=== PATIENT | female | born 1985 | race African-American/Black ===

== ENCOUNTER 2018-04-07 17:54 | Emergency (ER) | payer MEDICARE, MEDICAID ==
[~2018-04-07 17:54] MED LIST: ISOVUE-370 76%-LOCM 1 ML ONE; Iopamidol 370 76% 50 ML VIAL FS ONE
[2018-04-07 18:43] LABS: #Basophils 0.1 thou/uL (0.0-0.2); #Eosinphils 0.2 thou/uL (0.0-0.7); #Lymphocytes 3.2 thou/uL (1.20-3.40); #Monocytes 0.5 thou/uL (0.11-0.59); #Neutrophils 4.9 thou/uL (1.40-6.50); %Eosinophils 1.9 % (0.0-10.0); %Lymphocytes 36.3 % (21.0-51.0); %Neutrophils 54.9 % (42.0-75.0); Hemoglobin 13.8 g/dL (12.0-16.0); Mean Corpuscular HGB CONC 33.8 g/dL (32.0-36.0); Mean Corpuscular Hemoglobin 30.9 pg (27.0-31.0); Mean Corpuscular Volume 91.5 fL (78.0-98.0); Mean Platelet Volume 7.4 fL (7.4-10.4); Platelet Count 307 thou/uL (130-400); RBC Distribution Width 12.1 % (11.5-14.5); Red Blood Cell (RBC) Count 4.45 mill/uL (4.20-5.40); White Blood Cell (WBC) Count 8.8 thou/uL (4.8-10.8)
[2018-04-07 18:45] LABS: ALT (SGPT) 13 U/L (8-55); AST (SGOT) 14 U/L (5-34); Albumin 4.7 g/dL (3.5-5.0); Alkaline Phosphatase 74 U/L (40-150); Anion Gap 22 mmol/L (10-20); BUN (Urea Nitrogen) 7 mg/dL (7.0-18.7); Bilirubin, Total 0.2 mg/dL (0.2-1.2); Calc. Creatinine Clearance 0 mL/min (70-130); Carbon Dioxide 14 mmol/L (22-29); Chloride 107 mmol/L (98-107); Estimated GFR-MDRD Greater than 90; Globulin 3.3 g/dL (2.4-3.5); Glucose 103 mg/dL (70-105); Lipase 46 U/L (8-78); Potassium 3.7 mmol/L (3.5-5.1); Sodium 139 mmol/L (136-145)
[2018-04-07 19:09] LABS: Bilirubin Small (Negative); Blood, Urine Negative (Negative); Clarity CLEAR (Clear); Glucose, Urine (Dipstick) Negative (Negative); Leukocyte Trace (Negative); Nitrite Negative (Negative); Protein, Urine (Dipstick) Trace mg/dL (Neg-Trace); Specific Gravity, Urine 1.036 (1.002-1.036); Urobilinogen 0.2 mg/dL (0.2-1.0); pH, Urine 5.5 (5.0-9.0)
[2018-04-07 19:11] LABS: Bacteria/HPF None Seen HPF (None Seen); Hyaline Casts/LPF 4-6 HYALINE CAST LPF (0-3 Hyaline); Pathc Cast-AUWi Flag 0.87 (0-2.49); WBC/HPF 21-50 HPF (0-3)
[2018-04-07 19:13] LABS: Pregnancy Test - Urine (BHCG) Negative (Negative); Pregu Control Background? CLEAR/WHITE (CLR/WHITE); Pregu Control Bar Appear? YES (CONTROL BAR); RBC/HPF None Seen HPF (0-3); Specific Gravity 1.036 (1.002-1.036)
[2018-04-07] MEDS ORDERED: Ondansetron HCl/PF 4 MG/2 ML Vial ONE (19:44)
[2018-04-07] MEDS ORDERED: Ketorolac Tromethamine 30 MG/ML VIAL ONE (20:23)
--- NOTE | 2018-04-07 21:54 | CT ---
CT ABDOMEN WITH CONTRAST CT PELVIS WITH CONTRAST: DATE: 04/07/18 TIME: 9:19 p.m. HISTORY: 32-year-old female with suprapubic abdominal pain for two weeks, nausea, emesis, and diarrhea. Hematu thomas. COMPARISON: 04/12/17. TECHNIQUE: IV injection of iodinated contrast media: Administered. Oral contrast media: Administered. FINDINGS: Most of the oral contrast material remains in the moderately distended stomach. Some has reached the proximal third stage of the duodenum. None has reached the jejunum. There is no small bowel dilation. The transverse, ascending, and descending colon, are absent. There is a suture line at a nondistende d bowel loop at the right lower quadrant/pelvic inlet as previously demonstrated. There is architectu ral distortion of the mesentery near midline at the pelvic inlet/lower peritoneal cavity, probably re presenting postsurgical scar. Previously, there was a 3.5 cm left adnexal cyst, which is no longer pr esent. Previously, there was a mostly fluid filled moderately distended rectum, with a suture line ar ound it. Currently, what appears to be the rectosigmoid colon is more distended, now mostly with gas. There is a small amount of liquid stool in the posterior, dependent portion of the lumen of the rect um. Suture line around the rectum is again demonstrated. There is mild mural thickening of the rectum , similar to the previous CT. There is again, minimal edema or fluid abutting the posterior surface o f the rectum, similar to previous CT. Otherwise, no free fluid. The urinary bladder is decompressed. Abdominal aorta, bilateral kidneys, adrenals, pancreas, and spleen, are normal. The liver is enlarged . No portal vein thrombosis. No focal hepatic mass lesion or biliary ductal dilatation. No pneumoperi toneum. Lung bases are clear. IMPRESSION: 1. Status post subtotal colectomy. 2. Gas filled distended rectosigmoid colon with mild mural thickening of the rectum, and old sut ure line around the rectum, similar to previous CT. Nonspecific. Questionable proctitis. 3. Hepatomegaly. 4. No abscess. JANI Leyav POS: BOBBI
== END 2018-04-07 23:20 | disposition home or self-care (01) ==
LOC: ERS 17:54
DX: K52.9 Noninfective gastroenteritis and colitis, unspecified (principal); J45.909 Unspecified asthma, uncomplicated; F41.9 Anxiety disorder, unspecified; F17.210 Nicotine dependence, cigarettes, uncomplicated; Z79.899 Other long term (current) drug therapy
CPT/HCPCS: 36415; 74177; 80053; 81003; 81015; 81025; 83690; 85025; 94760; 96361; 96372; 96374; 96375; J1885; J2405

== ENCOUNTER 2018-06-21 03:09 | Emergency (ER) | payer MEDICARE, MEDICAID ==
[2018-06-21 04:12] LABS: Bilirubin Negative (Negative); Blood, Urine Trace (Negative); Clarity CLEAR (Clear); Glucose, Urine (Dipstick) Negative (Negative); Leukocyte Negative (Negative); Nitrite Negative (Negative); Protein, Urine (Dipstick) Negative (Neg-Trace); Specific Gravity, Urine 1.011 (1.002-1.036); Urobilinogen 0.2 mg/dL (0.2-1.0); pH, Urine 5.5 (5.0-9.0)
[2018-06-21 04:14] LABS: Bacteria/HPF None Seen HPF (None Seen); Hyaline Casts/LPF 0-3 HYALINE CAST LPF (0-3 Hyaline); RBC/HPF 0-3 HPF (0-3); Squamous Epithelial None Seen HPF (0-3); WBC/HPF 0-3 HPF (0-3)
[2018-06-21 04:18] LABS: #Basophils 0.1 thou/uL (0.0-0.2); #Eosinphils 0.1 thou/uL (0.0-0.7); #Lymphocytes 3.2 thou/uL (1.20-3.40); #Monocytes 0.6 thou/uL (0.11-0.59); #Neutrophils 4.9 thou/uL (1.40-6.50); %Basophils 0.6 % (0.0-1.0); %Eosinophils 1.1 % (0.0-10.0); %Lymphocytes 35.9 % (21.0-51.0); %Monocytes 6.5 % (0.0-10.0); %Neutrophils 55.9 % (42.0-75.0); Hemoglobin 11.7 g/dL (12.0-16.0); Mean Corpuscular HGB CONC 32.9 g/dL (32.0-36.0); Mean Corpuscular Hemoglobin 30.3 pg (27.0-31.0); Mean Corpuscular Volume 92.1 fL (78.0-98.0); Mean Platelet Volume 7.6 fL (7.4-10.4); Platelet Count 268 thou/uL (130-400); RBC Distribution Width 12.5 % (11.5-14.5); Red Blood Cell (RBC) Count 3.86 mill/uL (4.20-5.40); White Blood Cell (WBC) Count 8.8 thou/uL (4.8-10.8)
[2018-06-21 04:26] LABS: PTT 27.1 SEC (22.9-36.1); Prothrombin Time 13.2 SEC (12.0-14.7)
[2018-06-21 04:33] LABS: BHCG - Serum Negative (NEGATIVE); Pregs Control Background? CLEAR/WHITE (CLR/WHITE); Pregs Control Bar Appear? YES (CONTROL BAR)
[2018-06-21 04:34] LABS: ALT (SGPT) 24 U/L (8-55); AST (SGOT) 21 U/L (5-34); Albumin 4.2 g/dL (3.5-5.0); Alkaline Phosphatase 50 U/L (40-150); Anion Gap 13 mmol/L (10-20); BUN (Urea Nitrogen) 8 mg/dL (7.0-18.7); Bilirubin, Total 0.3 mg/dL (0.2-1.2); Calc. Creatinine Clearance 0 mL/min (70-130); Calcium 9.4 mg/dL (7.8-10.44); Carbon Dioxide 20 mmol/L (22-29); Chloride 108 mmol/L (98-107); Estimated GFR-MDRD Greater than 90; Globulin 2.7 g/dL (2.4-3.5); Glucose 92 mg/dL (70-105); Protein, Total 6.9 g/dL (6.0-8.3); Sodium 137 mmol/L (136-145)
[2018-06-21 04:39] LABS: CKMB 0.7 ng/mL (0-6.6); Troponin I Less than 0.010 ng/mL (< 0.028)
== END 2018-06-21 05:08 | disposition home or self-care (01) ==
LOC: ERS 03:09
DX: R42 Dizziness and giddiness (principal); J45.909 Unspecified asthma, uncomplicated; F41.9 Anxiety disorder, unspecified; F17.210 Nicotine dependence, cigarettes, uncomplicated; Z79.899 Other long term (current) drug therapy
CPT/HCPCS: 36415; 80053; 81003; 81015; 82274; 82553; 84484; 84703; 85025; 85610; 85730; 87086; 93005

== ENCOUNTER 2020-11-24 09:11 | Emergency (ER) | payer MEDICARE, MEDICAID ==
[~2020-11-24 09:11] MED LIST changes: -ISOVUE-370 76%-LOCM 1 ML ONE; -Iopamidol 370 76% 50 ML VIAL FS ONE; +Iopamidol-370 76% 500 ML 1 ML ONE
[2020-11-24] MEDS ORDERED: Ondansetron PF 4 MG/2 ML Vial ONE ×3 (09:28→11:49)
[2020-11-24] MEDS ORDERED: Morphine 4 MG/ML VIAL ONE ×2 (09:28→10:25)
[2020-11-24 10:05] LABS: #Basophils 0.1 thou/uL (0.0-0.2); #Lymphocytes 3.1 thou/uL (1.20-3.40); #Monocytes 0.7 thou/uL (0.11-0.59); #Neutrophils 6.7 thou/uL (1.40-6.50); %Basophils 0.6 % (0.0-1.0); %Eosinophils 0.3 % (0.0-10.0); %Lymphocytes 29.5 % (21.0-51.0); %Monocytes 6.7 % (0.0-10.0); Hemoglobin 13.3 g/dL (12.0-16.0); Mean Corpuscular HGB CONC 33.4 g/dL (32.0-36.0); Mean Corpuscular Volume 92.8 fL (78.0-98.0); Mean Platelet Volume 7.5 fL (7.4-10.4); Platelet Count 329 thou/uL (130-400); RBC Distribution Width 12.7 % (11.5-14.5); White Blood Cell (WBC) Count 10.6 thou/uL (4.8-10.8)
[2020-11-24 10:23] LABS: ALT (SGPT) 27 U/L (8-55); AST (SGOT) 13 U/L (5-34); Albumin 4.3 g/dL (3.5-5.0); Alkaline Phosphatase 80 U/L (40-110); Anion Gap 17 mmol/L (10-20); BUN (Urea Nitrogen) 6 mg/dL (7.0-18.7); Bilirubin, Total 0.3 mg/dL (0.2-1.2); Calc. Creatinine Clearance 0 mL/min (70-130); Calcium 9.1 mg/dL (7.8-10.44); Carbon Dioxide 17 mmol/L (22-29); Chloride 107 mmol/L (98-107); Globulin 3.3 g/dL (2.4-3.5); Glucose 101 mg/dL (70-105); Lipase 24 U/L (8-78); Potassium 3.9 mmol/L (3.5-5.1); Protein, Total 7.6 g/dL (6.0-8.3); Sodium 137 mmol/L (136-145)
[2020-11-24 10:30] LABS: BHCG - Serum Negative (NEGATIVE); Pregs Control Background? CLEAR/WHITE (CLR/WHITE); Pregs Control Bar Appear? YES (CONTROL BAR)
[2020-11-24 11:23] LABS: Bacteria/HPF None Seen HPF (None Seen); Bilirubin Negative (Negative); Blood, Urine 1+ (Negative); Clarity Clear (Clear); Glucose, Urine (Dipstick) Normal (Negative); Ketone, Urine 20 mg/dL (Negative); Leukocyte Negative Leu/uL (Negative); Nitrite Negative (Negative); Protein, Urine (Dipstick) 10 mg/dL (Neg-Trace); RBC/HPF 0-3 HPF (0-3); Specific Gravity, Urine 1.015 (1.002-1.036); Urobilinogen Normal mg/dL (Less than 2)
== END 2020-11-24 12:24 | disposition home or self-care (01) ==
LOC: ERS 09:11
DX: R10.84 Generalized abdominal pain (principal); J45.909 Unspecified asthma, uncomplicated; F17.210 Nicotine dependence, cigarettes, uncomplicated
CPT/HCPCS: 36415; 74177; 80053; 81003; 81015; 83690; 84703; 85025; 93005; 96374; 96375; 96376; 99284; J2270; J2405; Q9967

== ENCOUNTER 2020-12-01 14:56 | Emergency (ER) | payer MEDICARE, MEDICAID ==
[2020-12-01] MEDS ORDERED: Lidocaine 1% w/Epinephrine 1:100K 20 ML VIAL ONE (16:02)
== END 2020-12-01 17:13 | disposition home or self-care (01) ==
LOC: ERS 14:56
DX: L02.214 Cutaneous abscess of groin (principal); J45.909 Unspecified asthma, uncomplicated; F17.210 Nicotine dependence, cigarettes, uncomplicated; Z79.899 Other long term (current) drug therapy
CPT/HCPCS: 10060

== ENCOUNTER 2021-09-23 14:09 | Emergency (ER) | payer MEDICAID, MEDICARE ==
[2021-09-23] MEDS ORDERED: Ondansetron PF 4 MG/2 ML Vial ONE (14:51)
[2021-09-23] MEDS ORDERED: Ketorolac Tromethamine 30 MG/ML VIAL ONE (14:51)
[2021-09-23] MEDS ORDERED: Acetaminophen 500 MG TAB ONE (14:51)
[2021-09-23 15:49] LABS: Bacteria/HPF 1+ HPF (None Seen); Bilirubin Negative (Negative); Blood, Urine 1+ (Negative); Clarity Turbid (Clear); Glucose, Urine (Dipstick) Normal (Negative); Ketone, Urine 20 mg/dL (Negative); Leukocyte Negative Leu/uL (Negative); Nitrite Negative (Negative); Pregnancy Test - Urine (BHCG) Negative (Negative); Pregu Control Background? CLEAR/WHITE (CLR/WHITE); Pregu Control Bar Appear? YES (CONTROL BAR); Protein, Urine (Dipstick) 10 mg/dL (Neg-Trace); RBC/HPF 0-3 HPF (0-3); Specific Gravity 1.017 (1.002-1.036); Specific Gravity, Urine 1.017 (1.002-1.036); Urobilinogen Normal mg/dL (Less than 2); WBC/HPF 0-3 HPF (0-3); pH, Urine 5.5 (5.0-9.0)
[2021-09-23 16:39] LABS: #Lymphocytes 2.5 thou/uL (1.20-3.40); #Monocytes 0.6 thou/uL (0.11-0.59); #Neutrophils 8.2 thou/uL (1.40-6.50); %Eosinophils 0.1 % (0.0-10.0); %Lymphocytes 21.6 % (21.0-51.0); %Monocytes 5.5 % (0.0-10.0); %Neutrophils 72.7 % (42.0-75.0); Hemoglobin 13.8 g/dL (12.0-16.0); Mean Corpuscular HGB CONC 33.2 g/dL (32.0-36.0); Mean Corpuscular Hemoglobin 30.8 pg (27.0-31.0); Mean Corpuscular Volume 92.6 fL (78.0-98.0); Mean Platelet Volume 7.5 fL (7.4-10.4); Platelet Count 338 thou/uL (130-400); Red Blood Cell (RBC) Count 4.49 mill/uL (4.20-5.40); White Blood Cell (WBC) Count 11.3 thou/uL (4.8-10.8)
[2021-09-23 17:03] LABS: ALT (SGPT) 36 U/L (8-55); AST (SGOT) 17 U/L (5-34); Albumin 4.5 g/dL (3.5-5.0); Alkaline Phosphatase 90 U/L (40-110); Anion Gap 20 mmol/L (10-20); BUN (Urea Nitrogen) 8 mg/dL (7.0-18.7); Bilirubin, Total 0.3 mg/dL (0.2-1.2); Calc. Creatinine Clearance 0 mL/min (70-130); Calcium 9.9 mg/dL (7.8-10.44); Carbon Dioxide 21 mmol/L (22-29); Chloride 99 mmol/L (98-107); Globulin 3.6 g/dL (2.4-3.5); Glucose 101 mg/dL (70-105); Lipase 20 U/L (8-78); Potassium 3.7 mmol/L (3.5-5.1); Protein, Total 8.1 g/dL (6.0-8.3); Sodium 136 mmol/L (136-145)
== END 2021-09-23 17:57 | disposition home or self-care (01) ==
LOC: ERS 14:09
DX: R10.84 Generalized abdominal pain (principal); J45.909 Unspecified asthma, uncomplicated; F17.210 Nicotine dependence, cigarettes, uncomplicated
CPT/HCPCS: 80053; 81003; 81015; 81025; 83690; 85025; 93005; 96374; 96375; J1885; J2405

== ENCOUNTER 2021-10-24 16:56 | Emergency (ER) | payer OTHER ==
[2021-10-24] MEDS ORDERED: Ketorolac Tromethamine 30 MG/ML VIAL ONE (17:53)
== END 2021-10-24 18:18 | disposition home or self-care (01) ==
LOC: ERS 16:56
DX: M25.572 Pain in left ankle and joints of left foot (principal); F17.210 Nicotine dependence, cigarettes, uncomplicated
CPT/HCPCS: 96372; J1885

== ENCOUNTER 2022-02-20 17:33 | Emergency (ER) | payer MEDICARE, OTHER ==
[2022-02-20] MEDS ORDERED: Ketorolac Tromethamine 30 MG/ML VIAL ONE (18:22)
== END 2022-02-20 19:05 | disposition home or self-care (01) ==
LOC: ERS 17:33
DX: H66.92 Otitis media, unspecified, left ear (principal); K02.9 Dental caries, unspecified; Z20.822 Contact with and (suspected) exposure to COVID-19; J45.909 Unspecified asthma, uncomplicated; Z85.038 Personal history of other malignant neoplasm of large intestine; F17.210 Nicotine dependence, cigarettes, uncomplicated
CPT/HCPCS: 87804; 96372; 99283; J1885; U0003; U0005

== ENCOUNTER 2022-03-25 09:42 | Emergency (ER) | payer OTHER ==
[2022-03-25 10:46] LABS: Bacteria/HPF None Seen HPF (None Seen); Bilirubin Negative (Negative); Blood, Urine Trace (Negative); Clarity Turbid (Clear); Glucose, Urine (Dipstick) Normal (Negative); Ketone, Urine Negative (Negative); Leukocyte 75 Leu/uL (Negative); Nitrite Negative (Negative); Protein, Urine (Dipstick) Negative (Neg-Trace); Specific Gravity, Urine 1.019 (1.002-1.036); Squamous Epithelial 0-3 HPF (0-3); Urobilinogen Normal mg/dL (Less than 2); pH, Urine 5.5 (5.0-9.0)
[2022-03-25] MEDS ORDERED: Lidocaine Viscous Sol 2% 15 ml UD Cup ONE (11:28)
== END 2022-03-25 12:11 | disposition home or self-care (01) ==
LOC: ERS 09:42
DX: B37.3 Candidiasis of vulva and vagina (principal); J45.909 Unspecified asthma, uncomplicated; F17.210 Nicotine dependence, cigarettes, uncomplicated
CPT/HCPCS: 81003; 81015; 87086; 99283

== ENCOUNTER 2022-05-18 11:39 | Emergency (ER) | payer OTHER ==
[2022-05-18] MEDS ORDERED: Morphine 4 MG/ML VIAL ONE (12:36)
[2022-05-18 12:50] LABS: #Eosinphils 0.2 thou/uL (0.0-0.7); #Lymphocytes 3.1 thou/uL (1.20-3.40); #Monocytes 0.6 thou/uL (0.11-0.59); #Neutrophils 4.7 thou/uL (1.40-6.50); %Basophils 0.6 % (0.0-1.0); %Eosinophils 1.9 % (0.0-10.0); %Lymphocytes 36.2 % (21.0-51.0); %Monocytes 6.4 % (0.0-10.0); Hemoglobin 13.9 g/dL (12.0-16.0); Mean Corpuscular Hemoglobin 31.2 pg (27.0-31.0); Mean Corpuscular Volume 94.8 fL (78.0-98.0); Mean Platelet Volume 7.5 fL (7.4-10.4); Platelet Count 345 thou/uL (130-400); RBC Distribution Width 12.5 % (11.5-14.5); Red Blood Cell (RBC) Count 4.46 mill/uL (4.20-5.40); White Blood Cell (WBC) Count 8.6 thou/uL (4.8-10.8)
[2022-05-18 12:52] LABS: BHCG - Serum Negative (NEGATIVE); Pregs Control Background? CLEAR/WHITE (CLR/WHITE); Pregs Control Bar Appear? YES (CONTROL BAR)
[2022-05-18 13:16] LABS: ALT (SGPT) 15 U/L (8-55); AST (SGOT) 15 U/L (5-34); Albumin 4.4 g/dL (3.5-5.0); Alkaline Phosphatase 85 U/L (40-110); Anion Gap 14 mmol/L (10-20); BUN (Urea Nitrogen) 4 mg/dL (7.0-18.7); Bilirubin, Total 0.3 mg/dL (0.2-1.2); Calc. Creatinine Clearance 0 mL/min (70-130); Calcium 9.7 mg/dL (7.8-10.44); Carbon Dioxide 21 mmol/L (22-29); Chloride 104 mmol/L (98-107); Estimated GFR 107; Globulin 3.2 g/dL (2.4-3.5); Glucose 100 mg/dL (70-105); Lipase 29 U/L (8-78); Potassium 4.1 mmol/L (3.5-5.1); Protein, Total 7.6 g/dL (6.0-8.3); Sodium 135 mmol/L (136-145)
[2022-05-18 14:34] LABS: Bilirubin Negative (Negative); Blood, Urine Negative (Negative); Clarity Clear (Clear); Glucose, Urine (Dipstick) Normal (Negative); Ketone, Urine Negative (Negative); Leukocyte Negative Leu/uL (Negative); Nitrite Negative (Negative); Protein, Urine (Dipstick) Negative (Neg-Trace); Specific Gravity, Urine 1.042 (1.002-1.036); Urobilinogen Normal mg/dL (Less than 2); pH, Urine 7.5 (5.0-9.0)
== END 2022-05-18 14:50 | disposition home or self-care (01) ==
LOC: ERS 11:39
DX: R10.31 Right lower quadrant pain (principal); I44.1 Atrioventricular block, second degree; K63.5 Polyp of colon; F17.210 Nicotine dependence, cigarettes, uncomplicated; K31.7 Polyp of stomach and duodenum
CPT/HCPCS: 36415; 74177; 80053; 81003; 83690; 84703; 85025; 93005; 96374; J2270; Q9967

== ENCOUNTER 2022-07-23 11:41 | Emergency (ER) | payer OTHER ==
[2022-07-23] MEDS ORDERED: Acetaminophen 500 MG TAB ONE (12:22)
[2022-07-23] MEDS ORDERED: Magnesium 2 GM/50 ML BAG (IN WATER) ONE (12:22)
[2022-07-23] MEDS ORDERED: Ketorolac Tromethamine 30 MG/ML VIAL ONE (12:22)
[2022-07-23] MEDS ORDERED: diphenhydrAMINE 50 MG/ML VIAL ONE (12:22)
[2022-07-23] MEDS ORDERED: Prochlorperazine 10 MG/2 ML VIAL ONE (12:24)
[2022-07-23 13:48] LABS: #Eosinphils 0.1 thou/uL (0.0-0.7); #Lymphocytes 0.8 thou/uL (1.20-3.40); #Monocytes 0.5 thou/uL (0.11-0.59); #Neutrophils 7.9 thou/uL (1.40-6.50); %Basophils 0.4 % (0.0-1.0); %Eosinophils 0.8 % (0.0-10.0); %Lymphocytes 8.9 % (21.0-51.0); %Neutrophils 84.9 % (42.0-75.0); Hemoglobin 13.2 g/dL (12.0-16.0); Mean Corpuscular HGB CONC 32.6 g/dL (32.0-36.0); Mean Corpuscular Hemoglobin 30.8 pg (27.0-31.0); Mean Corpuscular Volume 94.4 fl (78.0-98.0); Platelet Count 276 10x3/uL (130-400); Red Blood Cell (RBC) Count 4.27 mill/uL (4.20-5.40); White Blood Cell (WBC) Count 9.3 10x3/uL (4.8-10.8)
[2022-07-23 14:13] LABS: BHCG - Serum Negative (NEGATIVE); Pregs Control Background? CLEAR/WHITE (CLR/WHITE); Pregs Control Bar Appear? YES (CONTROL BAR)
[2022-07-23 14:23] LABS: Anion Gap 16 mmol/L (10-20); BUN (Urea Nitrogen) 6 mg/dL (7.0-18.7); Calc. Creatinine Clearance 0 mL/min (70-130); Carbon Dioxide 20 mmol/L (22-29); Chloride 105 mmol/L (98-107); Potassium 3.5 mmol/L (3.5-5.1); Sodium 137 mmol/L (136-145)
[2022-07-23 14:24] LABS: ALT (SGPT) 16 U/L (8-55); AST (SGOT) 14 U/L (5-34); Albumin 4.2 g/dL (3.5-5.0); Alkaline Phosphatase 70 U/L (40-110); Bilirubin, Total 0.3 mg/dL (0.2-1.2); Calcium 9.3 mg/dL (7.8-10.44); Estimated GFR 104; Globulin 3.5 g/dL (2.4-3.5); Glucose 92 mg/dL (70-105); Lipase 25 U/L (8-78); Protein, Total 7.7 g/dL (6.0-8.3)
== END 2022-07-23 14:48 | disposition home or self-care (01) ==
LOC: ERS 11:41
DX: R51.9 Headache, unspecified (principal); J45.909 Unspecified asthma, uncomplicated; F17.210 Nicotine dependence, cigarettes, uncomplicated
CPT/HCPCS: 80053; 83690; 84703; 85025; 96365; 96375; J0780; J1200; J1885; J3475

== ENCOUNTER 2022-07-23 16:39 | Observation (INO) | payer OTHER ==
[2022-07-23] MEDS ORDERED: Haloperidol Lactate 5 MG/ML VIAL ONE (16:59)
[2022-07-23] MEDS ORDERED: methylPREDNISolone Sod Succ/PF 125 MG/2 ML VIAL ONE (16:59)
[2022-07-23 18:29] LABS: SARS-CoV-2 NAA Rapid Test Not Detected (NotDetected)
[2022-07-23 18:36] LABS: #Lymphocytes 0.9 thou/uL (1.20-3.40); #Monocytes 0.4 thou/uL (0.11-0.59); #Neutrophils 5.4 thou/uL (1.40-6.50); %Basophils 0.1 % (0.0-1.0); %Eosinophils 0.7 % (0.0-10.0); %Monocytes 5.5 % (0.0-10.0); %Neutrophils 79.8 % (42.0-75.0); Hemoglobin 11.6 g/dL (12.0-16.0); Mean Corpuscular HGB CONC 33.2 g/dL (32.0-36.0); Mean Corpuscular Hemoglobin 31.6 pg (27.0-31.0); Mean Corpuscular Volume 95.4 fl (78.0-98.0); Mean Platelet Volume 7.4 fL (7.4-10.4); Platelet Count 254 10x3/uL (130-400); RBC Distribution Width 12.2 % (11.5-14.5); Red Blood Cell (RBC) Count 3.68 mill/uL (4.20-5.40); White Blood Cell (WBC) Count 6.7 10x3/uL (4.8-10.8)
[2022-07-23 19:03] LABS: ALT (SGPT) 13 U/L (8-55); AST (SGOT) 15 U/L (5-34); Albumin 3.6 g/dL (3.5-5.0); Alkaline Phosphatase 59 U/L (40-110); Anion Gap 13 mmol/L (10-20); BUN (Urea Nitrogen) 6 mg/dL (7.0-18.7); Bilirubin, Total 0.2 mg/dL (0.2-1.2); Calc. Creatinine Clearance 0 mL/min (70-130); Calcium 7.9 mg/dL (7.8-10.44); Carbon Dioxide 19 mmol/L (22-29); Chloride 111 mmol/L (98-107); Estimated GFR 117; Globulin 2.5 g/dL (2.4-3.5); Glucose 87 mg/dL (70-105); Magnesium 2.3 mg/dL (1.6-2.6); Potassium 3.9 mmol/L (3.5-5.1); Protein, Total 6.1 g/dL (6.0-8.3); Sodium 139 mmol/L (136-145)
[2022-07-23] MEDS ORDERED: Potassium Chloride 20 MEQ TAB ONE (19:16)
[2022-07-23 20:26] LABS: #Lymphocytes 0.7 thou/uL (1.20-3.40); #Monocytes 0.2 thou/uL (0.11-0.59); #Neutrophils 6.4 thou/uL (1.40-6.50); %Eosinophils 0.3 % (0.0-10.0); %Lymphocytes 9.7 % (21.0-51.0); %Monocytes 2.2 % (0.0-10.0); %Neutrophils 87.8 % (42.0-75.0); Hemoglobin 12.4 g/dL (12.0-16.0); Mean Corpuscular HGB CONC 33.1 g/dL (32.0-36.0); Mean Corpuscular Hemoglobin 31.4 pg (27.0-31.0); Mean Corpuscular Volume 94.9 fl (78.0-98.0); Mean Platelet Volume 7.5 fL (7.4-10.4); Platelet Count 267 10x3/uL (130-400); RBC Distribution Width 12.1 % (11.5-14.5); Red Blood Cell (RBC) Count 3.96 mill/uL (4.20-5.40); White Blood Cell (WBC) Count 7.3 10x3/uL (4.8-10.8)
[2022-07-23] MEDS ORDERED: Albuterol Sulfate 2.5 mg/3 ml Neb NEB PRN (21:19)
[2022-07-23] MEDS ORDERED: Oseltamivir 75 MG CAP PO SCH (21:30)
[2022-07-24] MEDS ORDERED: Acetaminophen 325 MG TAB ONE ×3 (01:23→12:40)
[2022-07-24] MEDS: Acetaminophen 325 MG TAB PO PRN ×4 (01:24→20:24)
[2022-07-24] MEDS ORDERED: Ondansetron PF 4 MG/2 ML Vial ONE ×2 (06:37→12:40)
[2022-07-24] MEDS: Ondansetron PF 4 MG/2 ML Vial IVP PRN ×3 (06:38→17:28)
[2022-07-24] MEDS: Oseltamivir 75 MG CAP PO SCH ×2 (09:09→20:17)
[2022-07-24 09:44] LABS: #Lymphocytes 1.1 thou/uL (1.20-3.40); #Monocytes 0.3 thou/uL (0.11-0.59); #Neutrophils 5.6 thou/uL (1.40-6.50); %Eosinophils 0.3 % (0.0-10.0); %Lymphocytes 15.6 % (21.0-51.0); %Monocytes 4.4 % (0.0-10.0); %Neutrophils 79.8 % (42.0-75.0); Mean Corpuscular HGB CONC 32.8 g/dL (32.0-36.0); Mean Corpuscular Hemoglobin 31.5 pg (27.0-31.0); Mean Platelet Volume 8.2 fL (7.4-10.4); Platelet Count 263 10x3/uL (130-400); RBC Distribution Width 12.1 % (11.5-14.5); Red Blood Cell (RBC) Count 4.12 mill/uL (4.20-5.40)
[2022-07-24 11:18] LABS: Chloride 108 mmol/L (98-107); Potassium 3.9 mmol/L (3.5-5.1); Sodium 138 mmol/L (136-145)
[2022-07-24 11:19] LABS: Calcium 8.9 mg/dL (7.8-10.44); Glucose 113 mg/dL (70-105)
[2022-07-24 11:21] LABS: Anion Gap 12 mmol/L (10-20); Carbon Dioxide 22 mmol/L (22-29)
[2022-07-24 11:23] LABS: Calc. Creatinine Clearance 0 mL/min (70-130); Estimated GFR 114
[2022-07-24 11:24] LABS: BUN (Urea Nitrogen) 8 mg/dL (7.0-18.7)
[2022-07-24] MEDS: traMADol HCl 50 MG TAB PO PRN (16:32)
[2022-07-24 17:08] VITALS: BMI 32.7
[2022-07-25] MEDS: traMADol HCl 50 MG TAB PO PRN ×2 (01:49→08:44)
[2022-07-25] MEDS: Ondansetron PF 4 MG/2 ML Vial IVP PRN ×2 (01:49→08:45)
[2022-07-25] MEDS: Acetaminophen 325 MG TAB PO PRN ×2 (05:35→11:10)
[2022-07-25] MEDS: Oseltamivir 75 MG CAP PO SCH (08:44)
[2022-07-25 11:41] VITALS: BP 111/55; TEMP 97.5
== END 2022-07-25 15:00 | disposition home or self-care (01) ==
LOC: ERS 16:39 → ERHOLD 20:21 → 2SW 20:31
PROVIDERS: ADMIT Internal Medicine; ATTEND Internal Medicine
DX: J10.1 Influenza due to other identified influenza virus with other respiratory manifestations (principal); R55 Syncope and collapse; J45.909 Unspecified asthma, uncomplicated; I44.1 Atrioventricular block, second degree; F17.210 Nicotine dependence, cigarettes, uncomplicated; F12.10 Cannabis abuse, uncomplicated; Z88.1 Allergy status to other antibiotic agents; Z88.2 Allergy status to sulfonamides; Z90.49 Acquired absence of other specified parts of digestive tract; Z20.822 Contact with and (suspected) exposure to COVID-19; R51.9 Headache, unspecified
CPT/HCPCS: 0240U; 70450; 80048; 80053 ×2; 83690; 83735; 83880; 84484; 84703; 85025 ×3; 93005; 96365; 96374; 96375 ×2; 96376 ×3; 99285; G0378 ×4; 36415; J0780; J1200; J1630; J1885; J2405; J2930; J3475

== ENCOUNTER 2023-06-19 02:50 | Emergency (ER) | payer OTHER, MEDICAID ==
[2023-06-19] MEDS ORDERED: Morphine 4 MG/ML VIAL ONE (04:08)
[2023-06-19] MEDS ORDERED: Ondansetron PF 4 MG/2 ML Vial ONE (04:08)
[2023-06-19 05:51] LABS: #Eosinphils 0.4 thou/uL (0.0-0.7); #Monocytes 0.9 thou/uL (0.11-0.59); #Neutrophils 5.5 thou/uL (1.40-6.50); %Basophils 0.3 % (0.0-1.0); %Eosinophils 3.4 % (0.0-10.0); %Lymphocytes 36.5 % (21.0-51.0); %Monocytes 8.2 % (0.0-10.0); %Neutrophils 51.3 % (42.0-75.0); Hematocrit 37.3 % (36.0-47.0); Hemoglobin 12.6 g/dL (12.0-16.0); Mean Corpuscular HGB CONC 33.8 g/dL (32.0-36.0); Mean Corpuscular Volume 91.6 fl (78.0-98.0); Mean Platelet Volume 10.3 fL (7.4-10.4); Platelet Count 288 10x3/uL (130-400); Red Blood Cell (RBC) Count 4.07 mill/uL (4.20-5.40); White Blood Cell (WBC) Count 10.7 10x3/uL (4.8-10.8)
[2023-06-19 05:59] LABS: BHCG - Serum Negative (NEGATIVE); Pregs Control Background? CLEAR/WHITE (CLR/WHITE); Pregs Control Bar Appear? YES (CONTROL BAR)
[2023-06-19 06:15] LABS: ALT (SGPT) 11 U/L (8-55); AST (SGOT) 15 U/L (5-34); Albumin 4.9 g/dL (3.5-5.0); Alkaline Phosphatase 76 U/L (40-110); Anion Gap 16 mmol/L (10-20); BUN (Urea Nitrogen) 8 mg/dL (7.0-18.7); Bilirubin, Total 0.2 mg/dL (0.2-1.2); Calc. Creatinine Clearance 0 mL/min (70-130); Carbon Dioxide 20 mmol/L (22-29); Chloride 105 mmol/L (98-107); Estimated GFR 108; Globulin 3.1 g/dL (2.4-3.5); Glucose 84 mg/dL (70-105); Lipase 28 U/L (8-78); Potassium 4.2 mmol/L (3.5-5.1); Sodium 137 mmol/L (136-145)
[2023-06-19 06:27] LABS: Bacteria/HPF None Seen HPF (None Seen); Bilirubin Negative (Negative); Blood, Urine Trace (Negative); CAUTI Indications for Culture Dysuria,urgency,freq; Clarity Clear (Clear); Glucose, Urine (Dipstick) Normal (Negative); Ketone, Urine Trace mg/dL (Negative); Leukocyte Negative Leu/uL (Negative); Nitrite Negative (Negative); Protein, Urine (Dipstick) Negative (Neg-Trace); RBC/HPF 0-3 HPF (0-3); Specific Gravity, Urine 1.023 (1.002-1.036); Squamous Epithelial 0-3 HPF (0-3); Urobilinogen Normal mg/dL (Less than 2); WBC/HPF 0-3 HPF (0-3); pH, Urine 5.5 (5.0-9.0)
[2023-06-19 06:28] LABS: Urine Culture Reflex No No
[2023-06-19] MEDS ORDERED: Fleet Saline Enema 133 ML BOT PR SCH (07:45)
[2023-06-19] MEDS ORDERED: Iopamidol-370 76% 500 ML MDV (1 ML CHARGE) ONE (09:47)
== END 2023-06-19 04:56 | disposition home or self-care (01) ==
LOC: ERS 02:50
DX: K56.41 Fecal impaction (principal); F17.210 Nicotine dependence, cigarettes, uncomplicated
CPT/HCPCS: 74177; 80053; 81001; 83690; 84703; 85025; 96361; 96374; 96375; J2270; J2405; Q9967